=== PATIENT | female | born 1935 | race Caucasian/White ===

== ENCOUNTER 2018-11-22 10:32 | Outpatient (REF) | payer MEDICARE, SELFPAY ==
[2018-11-22 19:44] LABS: Abs Immature Grans 0.02 k/cumm (0.0-0.09); Absolute Basophil Count 0.02 k/cumm (0.0-0.2); Absolute Eosinophil Count 0.22 k/cumm (0.0-0.7); Absolute Lymphocyte Count 1.63 k/cumm (1.2-3.4); Absolute Monocyte Count 0.53 k/cumm (0.11-0.7); Absolute Neutrophil Count 4.66 k/cumm (1.2-6.7); Basophils % 0.3; Eosinophils % 3.1; HCT 45.9 % (36.0-46.0); HGB 14.8 g/dL (12.0-15.5); Immature Grans % 0.3; Mean Corp. HGB Concentration 32.2 g/dL (32.0-36.0); Mean Corpuscular Volume 93.1 fL (80-95); Mean Platelet Volume 11.8 fL (8.0-11.0); Monocytes % 7.5; Neutrophils % 65.8; Platelet Count 170 x1000/uL (130-400); RBC 4.93 m/cumm (4.00-5.20); RBC Distribution Width 14.4 % (11.7-14.6); White Blood Cell Count 7.08 k/cumm (4.4-10.8)
[2018-11-22 20:18] LABS: CREATININE 0.95 mg/dL (0.55-1.02); Cholesterol 232 mg/dL (50-200); Estimated GFR 56.46 (mL/min/1.73m2); Glucose 103 mg/dL (70-100); HDL Cholesterol 44 mg/dL (40-60); LDL CHOLESTEROL 162 mg/dL (<100); TSH 1.94 uIU/mL (0.358-3.74); Triglyceride 148 mg/dL (30-150)
== END 2018-11-22 10:52 ==
LOC: NCHCN 10:32
PROVIDERS: PCP Physician Assistant Medical; Visit Provider Nurse Practitioner Family
DX: R06.09 Other forms of dyspnea (principal); E78.5 Hyperlipidemia, unspecified; I10 Essential (primary) hypertension; Z85.828 Personal history of other malignant neoplasm of skin
CPT/HCPCS: 80061; 82947; 83721; 82565; 84443; 85025

== ENCOUNTER 2018-12-11 03:11 | Outpatient (CLI) | payer MEDICARE, SELFPAY ==
--- NOTE | 2018-12-11 | PFT_ITS ---
PULMONARY FUNCTION TEST REPORT Patient identification Aura Daniels DATE OF 39 DATE OF SERVICE 12/11/18 REQUESTING PROVIDER - Carolyne Pretty INTERPRETATION OF STUDY Spirometry shows mild obstructive airways disease. No bronchodilator testing was carried out. LUNG VOLUMES - Lung volumes show no evidence of restriction. DIFFUSION CAPACITY- Moderately reduced, which is mildly reduced when corrected to alveolar volume. AIRWAY RESISTANCE - Normal. IMPRESSION Mild obstructive airways disease. No bronchodilator response testing was carried out. This is associated with moderate diffusion defect. Clinical correlation recommended. Cadence Lozada M.D. SHANICE/phillip T 12/13/18
[2018-12-11] MEDS: Albuterol HFA 18 GM 200 PUFF INH IH (10:53)
[2018-12-11] MEDS: Inhaler, Assist Device 1 EACH MC (10:53)
== END 2018-12-11 03:31 ==
PROVIDERS: PCP Physician Assistant Medical; Visit Provider Nurse Practitioner Family
DX: R06.09 Other forms of dyspnea (principal)
CPT/HCPCS: 94060; 94150; 94726; 94729